=== PATIENT | female | born 1950 | race Caucasian/White ===

== ENCOUNTER 2019-12-12 14:15 | Outpatient (REF) | payer MEDICARE, MEDICAID, SELFPAY ==
--- NOTE | 2019-12-12 14:43 | US_ITS ---
EXAMINATION: US ABDOMEN COMPLETE CLINICAL INFORMATION: Right upper quadrant pain. COMPARISON: Renal ultrasound 09/29/2015. CT abdomen pelvis 05/11/2009 TECHNIQUE: Real-time imaging of the abdominal viscera. Color Doppler exam used. FINDINGS: PANCREAS: Normal. ABDOMINAL AORTA: No aneurysm of aorta. There is mild atherosclerotic irregularity of the wall of the aorta. The proximal mid and distal aorta are visualized. INFERIOR VENA CAVA: Visualized portions are normal. LIVER: Liver is of normal size. The liver contour is normal. The echotexture of the parenchyma of the liver is mildly coarsened.. No focal hepatic lesion. There is no intrahepatic biliary duct dilatation seen. Small area of nonspecific thickening of the hepatic artery wall at the lashay hepatis incidentally noted. GALLBLADDER: Normal. The gallbladder is physiologically distended without evidence of stones, sludge, polyps, wall thickening or pericholecystic fluid. COMMON BILE DUCT: Normal in caliber measuring 0.2 cm in diameter. RIGHT KIDNEY: There is increased echogenicity and cortical thinning of the kidney. There are multiple renal cysts. Largest in the midpole measuring 0.8 cm. Mild fullness of the renal pelvis versus parapelvic cysts. No renal calculus. The kidney measures 9.3 cm in maximum dimension. LEFT KIDNEY: There is increased echogenicity and cortical thinning of the kidney. There are multiple renal cysts. Largest cyst measures 1.3 cm in the upper pole. No renal calculus. The kidney measures 10.2 cm in maximum dimension. SPLEEN: Normal. The spleen measures 6.6 cm in maximum dimension. FREE FLUID: None. IMPRESSION: 1. Liver is of normal size. There is coarse echotexture of the liver raising concern of hepatocellular disease, however this is nonspecific. 2. No gallstone or acute change of gallbladder. There is no bile duct dilatation. 3. Both kidneys show increased echogenicity of the cortex and cortical thinning consistent with medical renal disease.
== END 2019-12-12 14:16 | disposition home or self-care (01) ==
LOC: HO.US 14:15
PROVIDERS: PCP Internal Medicine; Visit Provider Internal Medicine
DX: R10.11 Right upper quadrant pain (principal)
CPT/HCPCS: 76700

== ENCOUNTER 2019-12-24 11:44 | Outpatient (REF) | payer MEDICARE, MEDICAID, SELFPAY ==
--- NOTE | 2019-12-24 11:47 | CT_ITS ---
EXAMINATION: CT ABDOMEN AND PELVIS WITH CONTRAST CLINICAL INFORMATION: Abdominal pain COMPARISON: Previous abdominal ultrasound from 12/12/[address] of the abdomen and pelvis April 2009 TECHNIQUE: Multidetector volumetric images were obtained from the superior aspect of the liver through the pubic symphysis following administration 85 mL ofOmnipaque 350 intravenous contrast. Sagittal and coronal reformatted images were obtained on the technologist's workstation. Oral contrast: Yes This CT examination was performed using dose optimization techniques as appropriate, variously including the following: *Automated exposure control *Adjustment of mA and/or kV according to patient size (this includes techniques or standardized protocols for targeted exams where dose is matched to indication/reason for exam; i.e. extremities or head) *Use of iterative reconstruction technique DLP: 312 mGy-cm FINDINGS: LUNG BASES: There is a atelectasis or some or consolidation seen in the medial segment of the right middle lobe. There is minimal atelectasis or consolidation seen in the inferior segment of the lingula. The lung bases are otherwise clear. LIVER, GALLBLADDER, AND BILIARY TREE: The liver is normal in size, shape, and attenuation. There is a small 4 mm low-attenuation lesion in the right lobe of the liver axial image 30 series 3 that is too small to definitively characterize. The gallbladder is unremarkable. There is no biliary duct dilatation. PANCREAS: Unremarkable. SPLEEN: Unremarkable. ADRENAL GLANDS: Unremarkable. KIDNEYS AND URETERS: There are innumerable small cysts seen in both kidneys suggestive of microcystic kidney disease. The largest cyst measures 1 cm in the lower pole of the left kidney. There is a 3 mm stone in the upper pole of the left kidney. There is question two 1 to 2 mm stones in the upper pole of the right kidney. No renal mass or hydronephrosis is seen. BLADDER: Unremarkable. GASTROINTESTINAL TRACT: There is stool throughout the colon suggestive of constipation. The small and large bowel are otherwise unremarkable. The appendix is unremarkable. The stomach is unremarkable. ABDOMINAL WALL: No significant hernia is appreciated. LYMPH NODES: Normal. VASCULAR: The abdominal aorta is calcified but normal in caliber. There are prominent bilateral ovarian veins questionable for pelvic congestion. PELVIC VISCERA: There are prominent pelvic vessels questionable for pelvic congestion. Uterus and adnexa are otherwise unremarkable. OSSEOUS STRUCTURES: There is degenerative disc disease at L5-S1. CT/CT abdomen pelvis w con IMPRESSION: Innumerable small cysts in both kidneys suggestive of microcystic disease. Small bilateral renal stones. Normal-appearing liver. Stool throughout the colon suggestive of constipation.
[2019-12-24] MEDS: iohexoL 350 MG/ML 100 ML INFUS..BTL 85 ML IV (14:47)
[2019-12-24] MEDS: Barium Sulfate Oral (Vanilla) 450 ML ORAL.SUSP 900 ML PO (14:49)
== END 2019-12-24 11:45 | disposition home or self-care (01) ==
LOC: HO.CT 11:44
PROVIDERS: PCP Internal Medicine; Visit Provider Internal Medicine
DX: R10.9 Unspecified abdominal pain (principal)
CPT/HCPCS: 74177; Q9967

== ENCOUNTER 2019-12-26 14:35 | Outpatient (REF) | payer MEDICARE, MEDICAID, SELFPAY ==
--- NOTE | 2019-12-26 14:44 | XR_ITS ---
EXAMINATION: BILATERAL SHOULDER. CLINICAL INFORMATION: Pain. Dislocation. COMPARISON: None TECHNIQUE: 2 views each shoulder. FINDINGS: RIGHT SHOULDER: There is no visible acute fracture, dislocation or subluxation seen. No bony erosive changes. The soft tissues are normal. LEFT SHOULDER: There is no visible acute fracture, dislocation or subluxation seen. There is a small enthesophyte along the greater tuberosity. The soft tissues are normal. No bony erosive changes seen. XR/XR shoulder RT min 2V IMPRESSION: Unremarkable bilateral shoulder exam.
--- NOTE | 2019-12-26 14:45 | XR_ITS ---
EXAMINATION: BILATERAL SHOULDER. CLINICAL INFORMATION: Pain. Dislocation. COMPARISON: None TECHNIQUE: 2 views each shoulder. FINDINGS: RIGHT SHOULDER: There is no visible acute fracture, dislocation or subluxation seen. No bony erosive changes. The soft tissues are normal. LEFT SHOULDER: There is no visible acute fracture, dislocation or subluxation seen. There is a small enthesophyte along the greater tuberosity. The soft tissues are normal. No bony erosive changes seen. XR/XR shoulder LT min 2V IMPRESSION: Unremarkable bilateral shoulder exam.
== END 2019-12-26 14:36 | disposition home or self-care (01) ==
LOC: HO.XRAY 14:35
PROVIDERS: PCP Internal Medicine; Visit Provider Internal Medicine
DX: M25.512 Pain in left shoulder (principal); M25.511 Pain in right shoulder
CPT/HCPCS: 73030

== ENCOUNTER 2021-05-16 11:13 | Outpatient (REF) | payer MEDICARE, MEDICAID, SELFPAY ==
--- NOTE | ~2021-05-16 | XR_ITS ---
EXAMINATION: XR CHEST CLINICAL INFORMATION: Cough and greenish sputum. COMPARISON: None TECHNIQUE: 2 views of the chest were obtained. FINDINGS: No significant abnormality is noted involving the heart, lungs, mediastinum, bony thorax or soft tissues. XR/XR chest 2V IMPRESSION: Unremarkable chest examination.
== END 2021-05-16 11:14 | disposition home or self-care (01) ==
LOC: HO.XRAY 11:13
PROVIDERS: PCP Internal Medicine; Visit Provider Internal Medicine
DX: R05.9 Cough, unspecified (principal); R09.3 Abnormal sputum
CPT/HCPCS: 71046

== ENCOUNTER 2022-01-03 14:33 | Outpatient (REF) | payer MEDICARE, MEDICAID, SELFPAY ==
--- NOTE | ~2022-01-03 | MM_ITS ---
EXAMINATION: MM SCREENING DIGITAL BREAST TOMOSYNTHESIS, BILATERAL CLINICAL INFORMATION: Screening. Asymptomatic. COMPARISON: Mammography: December 27, 2018 and studies dating back to August 08, 2013 TECHNIQUE: Digital breast tomosynthesis is performed in both the craniocaudal and mediolateral oblique views along with computer-aided detection (CAD). Synthesized 2D images are generated from the tomosynthesis. FINDINGS: There are scattered areas of fibroglandular density (ACR BI-RADS breast composition Category b). There are no significant masses, abnormal calcifications, or other abnormalities. MM/MM tomosynthesis screening BI IMPRESSION: No significant changes from prior exam. ASSESSMENT: BI-RADS 1: Negative RECOMMENDATION: Routine annual mammography screening. This patient's information was entered into a reminder system with a target due date for their next mammogram.
== END 2022-01-03 14:34 | disposition home or self-care (01) ==
LOC: HO.MAMMO 14:33
PROVIDERS: PCP Internal Medicine; Visit Provider Internal Medicine
DX: Z12.31 Encounter for screening mammogram for malignant neoplasm of breast (principal)
CPT/HCPCS: 77063; 77067

== ENCOUNTER 2022-12-06 15:10 | Outpatient (REF) | payer MEDICARE, MEDICAID, SELFPAY ==
--- NOTE | ~2022-12-06 | XR_ITS ---
EXAMINATION: CERVICAL SPINE 3 VIEWS CLINICAL INFORMATION: Pain. COMPARISON: CT cervical spine dated 02/27/2018. TECHNIQUE: Frontal, lateral and odontoid views are obtained. FINDINGS: Vertebral body heights and alignment are normal. At C2-C3, there is mild posterior disc space narrowing. At C3-C4 and C4-C5, there is moderate disc space narrowing. At C5-C6, there is marked disc space narrowing. At C6-C7, there is moderate disc space narrowing. No acute fracture or spondylolisthesis is seen. There is multi-level cervical spondylosis and facet arthropathy. The posterior elements are intact. There is no prevertebral soft tissue swelling. The dens and C7-T1 interface are normal. There is a left carotid atherosclerotic calcification, which can be more fully evaluated with dedicated carotid ultrasound, if clinically indicated. XR/XR lumbar spine 2-3V IMPRESSION: There is multi-level cervical degenerative disc disease, spondylosis and facet arthropathy. Degenerative disc disease is most pronounced at C5-C6, where it is marked. EXAMINATION: XR THORACIC SPINE CLINICAL INFORMATION: Pain. COMPARISON: None available. TECHNIQUE: Frontal and lateral views of the thoracic spine were obtained. FINDINGS: There is bony demineralization. There is a mild cervicothoracic dextroscoliosis. The thoracic disc spaces are well-maintained. No acute fracture or spondylolisthesis is seen. There is multi-level mild thoracic spondylosis. The posterior elements are intact. The paravertebral soft tissues are unremarkable. IMPRESSION: 1. No acute fracture or spondylolisthesis is seen. 2. The thoracic disc spaces are well-maintained. 3. There is multi-level mild thoracic spondylosis. 4. There is a mild cervicothoracic dextroscoliosis. EXAMINATION: XR LUMBOSACRAL SPINE CLINICAL INFORMATION: Pain. COMPARISON: None TECHNIQUE: AP and lateral views of the lumbar spine and lateral view of the lumbosacral junction. FINDINGS: Vertebral body heights are normal. There is a mild thoracolumbar rotatory levoscoliosis. At L5-S1, there is a 4 mm anterolisthesis. The remaining disc spaces are well-maintained. A rudimentary disc space is noted at S1-S2. The posterior elements are intact. There are aortoiliac atherosclerotic calcifications. IMPRESSION: 1. There is mild degenerative disc disease at L5-S1. 2. There is a mild thoracolumbar rotatory levoscoliosis.
== END 2022-12-06 15:11 | disposition home or self-care (01) ==
LOC: HO.HMGCX 15:10
PROVIDERS: PCP Internal Medicine; Visit Provider Internal Medicine
DX: M54.2 Cervicalgia (principal); M54.6 Pain in thoracic spine; M54.50 Low back pain, unspecified
CPT/HCPCS: 72040; 72070; 72100

== ENCOUNTER 2023-01-02 14:27 | Outpatient (REF) | payer MEDICARE, MEDICAID, SELFPAY ==
--- NOTE | ~2023-01-02 | US_ITS ---
EXAMINATION: US EXTRACRANIAL CAROTID DUPLEX, BILATERAL CLINICAL INFORMATION: Occlusion and stenosis bilateral CA COMPARISON: None available. TECHNIQUE: Real-time ultrasound and Doppler techniques (integrating B-mode 2-D vascular images, Doppler spectral analysis and color-flow Doppler imaging) were utilized to interrogate the extracranial carotid arteries, the vertebral arteries and proximal subclavian arteries bilaterally. The degree of stenosis is determined by criteria similar to NASCET. FINDINGS: Right Side: 1. There is mild atherosclerotic plaque seen in the bifurcation/proximal ICA region. 2. The common carotid artery PSV proximally is 88.4 cm/s and distally 62.3 cm/s. 3. The proximal internal carotid artery velocities are 50.5 cm/s systolic and 17.2 cm/s diastolic. 4. The proximal external carotid artery PSV is 53.9 cm/s. 5. The vertebral artery shows antegrade flow. 6. The subclavian artery waveforms are normal. Left Side: 1. There is no atherosclerotic plaque seen in the bifurcation/proximal ICA region. 2. The common carotid artery PSV proximally is 62.8 cm/s and distally 58.1 cm/s. 3. The proximal internal carotid artery velocities are 50.8 cm/s systolic and 20.4 cm/s diastolic. 4. The proximal external carotid artery PSV is 81.1 cm/s. 5. The vertebral artery shows antegrade flow. 6. The subclavian artery waveforms are normal. US/US carotid duplex BI IMPRESSION: 1. RIGHT: Minimal, non-hemodynamically significant stenosis of the proximal right internal carotid artery corresponding to a 0-49% stenosis by velocity criteria. 2. LEFT: Normal left internal carotid artery without atherosclerotic plaque or hemodynamically significant stenosis.
== END 2023-01-02 14:28 | disposition home or self-care (01) ==
LOC: HO.US 14:27
PROVIDERS: PCP Internal Medicine; Visit Provider Internal Medicine
DX: I65.23 Occlusion and stenosis of bilateral carotid arteries (principal)
CPT/HCPCS: 93880

== ENCOUNTER 2023-02-05 18:36 | Outpatient (REF) | payer MEDICARE, MEDICAID, SELFPAY ==
--- NOTE | ~2023-02-05 | MR_ITS ---
EXAMINATION: MR CERVICAL SPINE WITHOUT CONTRAST CLINICAL INFORMATION: Pain, rule out disc pathology. Self-reported bilateral arm weakness, arm numbness and arm pain. COMPARISON: Cervical spine radiographs 12/06/2022, cervical spine CT 02/27/2018 TECHNIQUE: MRI of the cervical spine was obtained using routine sequences without contrast. FINDINGS: Straightening of the cervical lordosis is noted and may be secondary to positioning during the examination. 2 mm degenerative type anterolisthesis of C4 and C5 is visualized. Visualized posterior fossa structures and craniocervical junction are normal in appearance. Incidental note is made of a dominant left vertebral artery. C2-C3: No central or foraminal stenoses. C3-C4: Marked right foraminal stenosis. Moderate-marked left foraminal stenosis. Mild central stenosis. Findings arise secondary to a posterior broad-based disc bulge with prominent bilateral uncovertebral joint incorporation with findings most pronounced on the rightward 75% right foraminal stenosis is present with probable right C4 nerve root impingement. C4-C5: Marked left foraminal stenosis. Moderate central stenosis. Findings arise in the setting of a moderate posterior broad-based disc bulge with focal prominence of the left uncovertebral joint component in association with adjacent ligamentum flavum hypertrophy resulting in at least 75% left foraminal narrowing and probable left C5 nerve root impingement. C5-C6: Marked right foraminal stenosis. Marked left foraminal stenosis. Moderate central stenosis. Findings are present in the setting of a moderate posterior broad-based disc-osteophyte complex with focally prominent bilateral uncovertebral joint incorporation. The posterior broad-based disc-osteophyte complex demonstrates right parasagittal eccentricity and is associated with effacement of the ventral thecal sac CSF space, AP deformation of the adjacent spinal cord and partial preservation of the dorsal thecal sac CSF space without associated adjacent spinal cord signal abnormality. C6-C7: Mild right foraminal stenosis. Mild central stenosis. Findings are present in association with a mild right uncovertebral joint disc-osteophyte complex. C7-T1: No central or foraminal stenoses. 3 mm left intraforaminal Tarlov cyst. MR/MR cervical spine wo con IMPRESSION: 1. Advanced multilevel chronic spondylosis of the cervical spine including significant findings as detailed below 2. C3-C4 marked right foraminal stenosis with right C4 nerve root impingement. 3. C4-C5 marked left foraminal stenosis with left C5 nerve root impingement. 4. C5-C6 marked bilateral foraminal stenoses with bilateral C6 nerve root impingements.
--- NOTE | ~2023-02-05 | MR_ITS ---
EXAMINATION: MR LUMBAR SPINE WITHOUT CONTRAST CLINICAL INFORMATION: Pain. Rule out disc pathology. Self-reported bilateral leg weakness, numbness and pain. COMPARISON: Lumbar spine radiographs 12/06/2022, CT abdomen and pelvis 12/24/2019. TECHNIQUE: MRI of the lumbar spine was obtained using routine sequences without contrast. FINDINGS: Five lumbar-type vertebral bodies are identified. Mild gradual convex leftward curvature of the lumbar spine is visualized and may be secondary to positioning. No vertebral body compression deformities or suspicious marrow abnormalities identified. Mild fatty type II chronic discogenic marrow signal changes are present adjacent to the L5-S1 intervertebral disc space. Partial visualization is made of 2 Tarlov cysts within the central canal at the level of S1-S2, the largest measuring 9 mm in diameter. The kidneys are partially included in the imaged [id number] and demonstrate multiple predominantly subcentimeter cysts in a cortical distribution. The visualized kidneys are grossly normal in size. Mild right pelviectasis is noted along with mild prominence of the proximal right ureter to a diameter of 5 mm. The visualized right renal pelvis and proximal right ureter are similar in configuration to findings noted contemporaneously on the 12/24/2019 CT of the abdomen and pelvis. The conus medullaris terminates at the level of L1. The conus medullaris and cauda equina are normal in appearance. T12-L1: No central or foraminal stenoses. L1-L2: Minimal posterior broad-based disc bulge. No significant central or foraminal stenoses. L2-L3: Mild central stenosis secondary to a mild posterior broad-based disc bulge minimally effacing the ventral thecal sac CSF space. L3-L4: Mild central stenosis and mild bilateral foraminal stenoses. Annular disc fissure. A mild posterior broad-based disc bulge with bilateral intraforaminal extension is present. T2 hyperintensity is present in the midline posterior aspect of the annulus of the intervertebral disc and may represent an annular fissure. No associated nerve root impingement noted. Mild bilateral ligamentum flavum hypertrophy. L4-L5: Mild central stenosis. Mild right foraminal stenosis. Findings arise secondary to a mild posterior broad-based disc bulge with right parasagittal and intraforaminal eccentricity with less than 50% right foraminal narrowing and resulting in mild effacement of the ventral thecal sac CSF space without associated nerve root impingement. Furthermore, mild right facet hypertrophic changes and minimal left facet hypertrophic changes noted. L5-S1: The intervertebral disc exhibits 75% overall loss of craniocaudal height. Mild central stenosis and mild left foraminal stenosis are present secondary to a mild posterior broad-based disc-osteophyte complex without associated direct nerve root impingement. MR/MR lumbar spine wo con IMPRESSION: 1. Multilevel chronic spondylosis of the lumbar spine without associated direct nerve root impingement or marked central or foraminal stenoses. Mild central and foraminal stenoses are noted at L2-L3, L3-L4, L4-L5, and L5-S1 as detailed above. A possible annular disc fissure is noted at L3-L4. 2. Glomerulocystic microcystic renal disease. Innumerable subcentimeter predominantly cortical-based renal cysts, similar to findings present on CT of the abdomen and pelvis 12/24/2019. Mild right pelviectasis and mild proximal right ureterectasis are present on the current exam and are similar in degree to findings present on the comparison study of 12/24/2019.
== END 2023-02-05 18:37 | disposition home or self-care (01) ==
LOC: HO.MRI 18:36
PROVIDERS: PCP Internal Medicine; Visit Provider Internal Medicine
DX: M54.2 Cervicalgia (principal); M43.16 Spondylolisthesis, lumbar region
CPT/HCPCS: 72141; 72148

== ENCOUNTER 2024-08-22 07:49 | Outpatient (AMB) | payer MEDICARE, SELFPAY ==
--- OUTSIDE RECORDS SUMMARY | 2024-08-22 07:52 | XMS_ITS | Encounter Summary ---
Author Organization [facility] Address [address] [place] [address] Phone Care Team Providers Care Respiratory Therapy Assistant Name Role Phone Amrit Lerma MD Primary Care Provider [phone] Encounter Details Date Type Department Care Team (Late Contact Info) Description 10/02/2023 Documentation Only [facility] [address] [place] [address] KevCece welch [address] [place] [id number] Social History Tobacco Use Types Packs/Day Years Used Date Smoking Tobacco: Never Assessed Alcohol Use Standard Drinks/Week Comments No 0 (1 standard drink = 0.6 oz pur e alcohol) Comments Unknown Sex and Gender Information Value Date Recorded Sex Assigned at Not on file Legal Sex Female 4:31 PM EST Gender Identity Not on file Sexual Orientation Not on file documented as of this encounter Plan of Treatment Upcoming Encounters Date Type Department Care Team (Late st Contact Info) Description 01/29/2025 1:30 PM EST Office Visit [facility] [address] [place] [address] Neda Francisco MD [address] [place] [address] [place] [address] documented as of this encounter Visit Diagnoses Not on filedocumented in this encounter Care Teams Respiratory Therapy Assistant Relationship Specialty Start Date End Date Amrit Lerma MD [address] [place] [address] PCP - General 12/31/18 documented as of this encounter
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
[2024-08-22 08:09] VITALS: BP 130/82; PULSE 96; TEMP 36.2; O2SAT 95; BMI 21.5
== END 2024-08-22 09:02 | disposition home or self-care (01) ==
LOC: HO.HMCH 07:49
DX: Q61.3 Polycystic kidney, unspecified (principal); F31.31 Bipolar disorder, current episode depressed, mild; K58.9 Irritable bowel syndrome, unspecified; F17.200 Nicotine dependence, unspecified, uncomplicated; N32.81 Overactive bladder; M48.02 Spinal stenosis, cervical region; M47.812 Spondylosis without myelopathy or radiculopathy, cervical region; M47.816 Spondylosis without myelopathy or radiculopathy, lumbar region; M81.0 Age-related osteoporosis without current pathological fracture; Z13.220 Encounter for screening for lipoid disorders; Z53.20 Procedure and treatment not carried out because of patient's decision for unspecified reasons; Z00.00 Encounter for general adult medical examination without abnormal findings

== ENCOUNTER 2024-08-22 07:49 | Outpatient (REF) | payer MEDICARE, SELFPAY ==
[2024-08-22 09:20] LABS: MANUAL DIFF FLAG NO
[2024-08-22 09:45] LABS: Basophils Absolute Auto 0.1 X10*3/uL (0.0-0.2); Basophils Percent Auto 0.9 % (0-2); Eosinophils Absolute Auto 0.1 X10*3/uL (0.0-0.4); Eosinophils Percent Auto 1.4 % (0-4); Hematocrit 41.9 % (37.0-47.0); Hemoglobin 14.4 g/dl (12.0-16.0); Imm Gran Abs Auto 0.01 X10*3/uL (0.00-0.03); Imm Gran Pct Auto 0.1 % (0.0-0.4); Lymphocytes Absolute Auto 1.3 X10*3/uL (1.2-4.9); Lymphocytes Percent Auto 17.2 % (20-40); Mean Corpuscular HGB Conc 34.4 g/dl (31.0-35.0); Mean Corpuscular Hemoglobin 32.3 pg (27.0-33.0); Mean Corpuscular Volume 93.9 fL (80.0-98.0); Mean Platelet Volume 10.4 fL (9.4-12.3); Monocytes Percent Auto 13.3 % (2-11); Neutrophils Absolute Auto 5.1 x10*3/uL (2.0-8.3); Neutrophils Percent Auto 67.1 % (45-73); Platelet Count 300 X10*3/uL (160-400); Red Blood Count 4.46 X10*6/uL (4.20-5.50); Red Cell Distribution Width 12.4 % (11.0-16.0); White Blood Count 7.6 X10*3/uL (4.8-10.8)
[2024-08-22 10:59] LABS: Alanine Aminotransferase 45 U/L (0-31); Albumin Level 4.6 g/dL (3.5-5.0); Alkaline Phosphatase 75 U/L (39-117); Anion Gap 17 (12-20); Aspartate Amino Transferase 57 U/L (5-31); Bilirubin Total 0.4 mg/dL (0.0-1.0); Blood Urea Nitrogen 30 mg/dL (9-16); Calcium 9.2 mg/dL (8.4-10.2); Carbon Dioxide 24 mmol/L (22-29); Chloride 105 mmol/L (96-108); Cholesterol 179 mg/dL (<200); Estimated Glomerular Filt Rate 34; Glucose Random 104 mg/dL (60-115); HDL Cholesterol 73 mg/dL (>40); LDL Cholesterol Calculated 87 mg/dL (<100); Potassium 4.3 mmol/L (3.3-5.1); Sodium 142 mmol/L (135-145); Triglycerides 97 mg/dL (<150)
[2024-08-22 11:05] LABS: Free T4 (Free Thyroxine) 1.03 ng/dL (0.71-1.85); TSH reflex Free T4 2.58 uIU/mL (0.32-4.0); Vitamin D 25-OH Total 62.4 ng/mL (>30)
[2024-08-22 11:24] LABS: Vitamin B12 937 pg/mL (200-900)
== END 2024-08-22 07:50 | disposition home or self-care (01) ==
LOC: HO.LAB 07:49
DX: Z00.00 Encounter for general adult medical examination without abnormal findings (principal); Q61.3 Polycystic kidney, unspecified; M81.0 Age-related osteoporosis without current pathological fracture; Z13.220 Encounter for screening for lipoid disorders; Z13.21 Encounter for screening for nutritional disorder
CPT/HCPCS: 36415; 80053; 80061; 82306; 82607; 82746; 84439; 84443; 85025; 96127; 99202

== ENCOUNTER 2024-11-24 13:34 | Outpatient (AMB) | payer MEDICARE, SELFPAY ==
--- NOTE | 2024-11-24 13:40 | AM.OFFVISMDC ---
Intake Vital Signs 11/24/24 13:42 Height 5 ft 3.39 in Weight 124 lb BMI 21.7 BP 120/76 Blood Pressure Location Lt brachial Position Sitting Pulse 84 Pulse Source Pulse Oximeter Temp 97.1 F Temp Source Temporal Artery Scan Pulse Oximetry (%) 93 Oxygen Delivery Method Room Air Intake Visit Reasons: AWV G0438 Intake Note: Patient is here for an Annual Wellness Visit. Permanent Mold Supervisor Required: No Beam Department Supervisor: Beam Department Supervisor offered & declined Accompanied by: Self / Same As Patient Allergies No Known Allergies (No Known Allergies*) Allergy (Verified 11/24/24 13:49) Medication List - Last Reconciled 11/24/24 by Yandy Faust PA-C ascorbate calcium (vitamin C) 500 mg PO DAILY betamethasone dipropionate 0.05% topical clonazepam 2 mg PO BEDTIME cyclobenzaprine 10 mg PO TID PRN dicyclomine 10 mg PO BID PRN divalproex ER 500 mg PO DAILY iron heme polypeptide (Proferrin ES) 12 mg PO DAILY lactulose 30 mL PO BID minoxidil-finasteride 5-0.1 % mL topical mirabegron ER 25 mg PO DAILY [id number]-[id number]-sxpxph 1 tab PO DAILY tramadol 50 mg PO TID venlafaxine ER 37.5 mg PO QAM vibegron (Gemtesa) 75 mg PO DAILY HPI AWV G0438 HPI Details 73 year old female with past medical history of polycytic kidney disease, bipolar disorder, IBS, tobacco use disorder, overactive bladder, osteoporosis last seen 07/2024 coming in for AWV. Presenting with an annual wellness examination. Alopecia Managed with topical minoxidil; oral minoxidil was contraindicated due to kidney disease. Elevated liver enzymes Attributed to Depakote; requires re-evaluation. No acute concerns today. mammogram: 2021 declined colonoscopy: declined DEXA: declined vaccines: [facility] Surgical History History of local excision of skin lesion Family History Other Mental health disorder Social History Housing: Apartment Alcohol intake: current Alcohol intake frequency: holidays/special occasions only Patient Tobacco Use Status: Current everyday Tobacco user Tobacco use type: Cigarette Cigarette Packs Per Day: 1 Cigarettes Per Day: 19 e-Cigarette/Vaping Use: Never Used Second Hand Smoke Exposure: Yes service: No Current occupational status: disabled Cognitive needs: No Hearing needs: No Vision needs: Yes (Glasses) Questionnaire Medicare Wellness Checkup [age] What gender do you identify with?: female During the past 4 weeks, how much have you been bothered by emotional problems such as feeling anxious, depressed, irritable, sad or downhearted, and blue?: slightly During the past 4 weeks, has your physical & emotional health limited your social activities with family, friends, neighbors, or groups?: quite a bit During the past 4 weeks, how much bodily pain have you generally had?: severe pain During the past 4 weeks, was someone available to help you if you needed & wanted help?: no, not at all During the past 4 weeks, what was the hardest physical activity you could do for at least 2 minutes?: light Can you get to places out of walking distance without help? (For eg., can you travel alone on buses, taxis or drive your car?): Yes Can you go shopping for groceries or clothes without someone's help?: Yes Can you prepare your own meals?: Yes Can you do your housework without help?: Yes Because of any health problems, do you need the help of another person with your personal care needs such as eating, bathing, dressing or getting around the house?: No Can you handle your own money without help?: Yes During the past 4 weeks, how would you rate your health in general?: good During the past 4 weeks how have things been going for you?: good & bad parts about equal Are you having difficulties driving your car?: no Do you always fasten your seat belt when you are in a car?: yes, usually During past 4 weeks, have you been bothered by the following: never: Falling or dizzy when standing up, Sexual problems?, Trouble eating well?, Teeth or denture problems? and Problems using the telephone? and always: Tiredness or fatigue? Have you fallen 2 or more times in the past year?: No Are you afraid of falling?: No Are you a smoker?: yes, but I'm not ready to quit During the past 4 weeks, how many drinks of wine, beer, or other alcoholic beverages did you have?: no alcohol at all Do you exercise for about 20 minutes 3 or more times a week?: no, I usually do not exercise this much Have you been given information to help with the following?: yes: Keeping track of your medications? and no: Hazards in your house that might hurt you? How often do you have trouble taking medicines the way you have been told to take them?: I always take medicine as prescribed How confident are you that you can control & manage most of your health problems?: very confident What is your race?: White Mini Mental State Exam (MMSE) Orientation What is the (year) (season) (date) (day) (month)?: year, season, date, day and month Where are we (state) (county) (town or city) (hospital) (floor)?: state, county, town or city, hospital/clinic and floor Score Score: 10 PHQ-9 Over the last 2 weeks, how often have you been bothered by any of the following problems? 1. Little interest or pleasure in doing things: several days 2. Feeling down, depressed, or hopeless: several days 3. Trouble falling or staying asleep, or sleeping too much: nearly every day 4. Feeling tired or having little energy: several days and nearly every day 5. Poor appetite or overeating: not at all 6. Feeling bad about yourself - or that you are a failure or have let yourself or your family down: not at all and several days 7. Trouble concentrating on things, such as reading the newspaper or watching television: not at all 8. Moving or speaking so slowly that other people could have noticed. Or the opposite - being so fidgety or restless that you have been moving around a lot more than usual: not at all 9. Thoughts that you would be better off or of hurting yourself in some way: not at all and several days Total score: 6 Depression Screening Interpretation: Positive Depression Screening Follow-up: Existing condition and In treatment Depression Screening Done: Yes Source: Developed by Drs. Ray Salazar, Denise Farooq, Josh Keen and colleagues, with an educational eloise from [employer]. Thrive Questionnaire Date Thrive assessed: 08/22/24 I am a: Patient What is your living situation today?: I have a steady place to live Within the past 12 months, did the food you bought not last and you didn't have the money to get more?: Never true Within the past 12 months, did you worry whether your food would run out before you got money to buy more?: Never true Do you have trouble paying for medicines?: No Do you have trouble getting transportation to medical appointments?: No Do you have trouble paying your heating and electricity bill?: No Do you have trouble taking care of your child, family member or friend?: No Do you have trouble with day-to-day activities such as bathing, preparing meals, shopping, managing finances, etc.?: Yes Are you currently unemployed and looking for a job?: No Are you interested in more education?: No Please select the resources that you would like help with: None Currently or been in a relationship where the following occur: Controlled Emotionally THRIVE Score: 1 OPAL-7 AMB Questionnaire OPAL-7 Date OPAL - 7 assessed: 08/22/24 Feeling nervous, anxious, or on edge: 1 = Several days Not being able to stop or control worryin = Several days Worrying too much about different things: 1 = Several days Trouble relaxin = Several days Being so restless that it is hard to sit still: 0 = Not at all Becoming easily annoyed or irritable: 1 = Several days Feeling afraid as if something awful might happen: 0 = Not at all Total OPAL-7 score (0-4 normal; 5-9 mild; 10-14 moderate; 15-21 severe): 5 Source: Developed by Drs. Ray Salazar, Denise Farooq, Josh Keen and colleagues, with an educational eloise from [employer]. Review of Systems Const Denies body aches, Denies fatigue, Denies fever(s), Denies frequent falls, Denies headache(s) and Denies weakness Eyes Reports no additional complaints and Denies change in vision ENT Denies dysphagia, Denies dizziness, Denies facial pain, Denies headache(s), Denies nasal congestion and Denies odynophagia Card Denies chest pain, Denies syncope, Denies irregular heart rhythm, Denies leg edema, Denies lightheadedness and Denies dyspnea Resp Denies cough and Denies dyspnea GI Denies abdominal pain, Denies constipation, Denies dysphagia, Denies dyspepsia, Denies diarrhea, Denies nausea, Denies odynophagia and Denies vomiting Denies urinary frequency, Denies dysuria, Denies urinary hesitancy and Denies urinary urgency Musc Reports as per HPI, Reports abnormal gait, Reports back pain and Denies myalgias Skin/Breast Reports system reviewed and no additional complaints, except as documented Neuro Reports abnormal gait, Denies dizziness, Denies syncope, Denies frequent falls, Denies headache(s) and Denies weakness Psych Reports no additional complaints Endo Denies fatigue Physical Exam Vital Signs: Last Vital Signs Temp 97.1 F 11/24/24 13:42 Pulse 84 11/24/24 13:42 BP 120/76 11/24/24 13:42 Pulse Ox 93 11/24/24 13:42 Oxygen Delivery Method Room Air 11/24/24 13:42 BMI result Body Mass Index 21.7 Const General: cooperative, healthy appearing, comfortable and no acute distress Orientation/consciousness: patient oriented x3 HEENT Head: Yes normocephalic Ears: hearing grossly normal bilaterally, external ears normal, TM's normal bilaterally and EAC's normal General nose exam: Normal external nose present Face and sinus: Yes normal facial exam and Yes sinuses nontender Mouth: Normal oral and palatal mucosa present and tongue normal Throat: Yes posterior oropharynx normal Eyes General: appearance normal, both eyes and all related structures Conjunctivae: conjunctivae normal Pupils: Equal, round and reactive pupils present EOM: EOMs intact bilaterally and No Nystagmus present Neck Neck: Yes normal visual inspection, Yes full ROM and Yes no lymphadenopathy Chest Chest palpation & inspection: normal inspection of the chest Resp Effort & Inspection: normal respiratory effort Auscultation: clear to auscultation bilaterally, no crackles, no rales, no rhonchi, no wheezes and breath sounds present Cardio Rate: regular rate Rhythm: regular rhythm Peripheral pulses: radial pulses present and dorsalis pedis present GI Inspection: Yes normal to inspection and No Abdominal wall edema Palpation (GI): Soft to palpation, not firm and nontender Auscultation: normal bowel sounds Rectal Exam - Female: deferred General: Yes no CVA tenderness Back/Spine/Pelvis Back: no CVA tenderness Skin General skin exam: no rashes or lesions noted Neuro General: patient oriented x3 Cranial nerves: Yes Equal, round and reactive pupils present, Yes Midline tongue present, Yes Ability to bilaterally elevate shoulders present and No Nystagmus present Gait exam (Neuro): Normal gait present Extrem General: Yes normal to inspection, Yes full ROM, No no pedal edema and No edema Psych Speech and movement: Normal speech and movement present Affect: normal affect Insight: Good insight present (Psych) Judgement: Good judgement present (Psych) Assessment & Plan Assessment & Plan (1) Encounter for annual wellness visit (AWV) in Medicare patient: Code(s): Z00.00 - Encounter for general adult medical examination without abnormal findings Plan: [place] of care was reviewed with patient patient was provided with a written screening schedule. Healthcare proxy/ MOLST forms previously completed an and has been scanned to her chart. Healthy diet and regular exercise is encouraged. (2) Polycystic kidney disease: Comment: [facility] yearly Code(s): Q61.3 - Polycystic kidney, unspecified Plan: Patient is currently following with kidney [facility] and [facility] for annual visits. Continue to avoid kidney irritants such as NSAIDs and stay well hydrated. (3) Bipolar disorder: Comment: Counselor [facility] monthly Jonnathan Barcenas for Rx Code(s): F31.9 - Bipolar disorder, unspecified Qualifiers: Active/Remission status: currently active Current bipolar episode type: depressed Current episode severity: mild Qualified Code(s): F31.31 - Bipolar disorder, current episode depressed, mild Plan: Bipolar disorder managed by counselor and prescription management through Psychiatry. She feels well managed on her current medication. (4) IBS (irritable bowel syndrome): Code(s): K58.9 - Irritable bowel syndrome, unspecified Plan: Patient having a history of IBS and has a managed through dietary modification. (5) Tobacco use disorder: Comment: Has tried NRT in the past Code(s): F17.200 - Nicotine dependence, unspecified, uncomplicated Plan: Smoking cigarettes and the use of tobacco can be harmful. We discussed the importance of stopping and options to aid in smoking cessation. Declining lung cancer screening program. Declining nicotine replacement therapy for medical management for tobacco cessation. (6) Overactive bladder: Comment: [facility] Code(s): N32.81 - Overactive bladder Plan: Currently following with [facility] on Gemtesa and mirabegron (7) Spinal stenosis in cervical region: Comment: w/ nerve root impingement Code(s): M48.02 - Spinal stenosis, cervical region Plan: Patient having arthritis and spinal stenosis in the cervical region with nerve root impingement. She currently uses cyclobenzaprine and tramadol as needed for pain. She use the tramadol 2-3 times per month only as needed for severe pain. I did discuss with her if she continues to use the tramadol in this manner I will continue the prescription however if it becomes more consistent use I will recommend pain management for further evaluation and treatment. (8) Cervical spine arthritis: Code(s): M47.812 - Spondylosis without myelopathy or radiculopathy, cervical region Plan: See above (9) Osteoporosis: Comment: declining bone density Code(s): M81.0 - Age-related osteoporosis without current pathological fracture Plan: Declining bone density screening. Recommend vitamin-D supplementation. Must be careful with dietary calcium due to kidney disease. (10) Mammogram declined: Code(s): Z53.20 - Procedure and treatment not carried out because of patient's decision for unspecified reasons Plan: Declining mammogram today. (11) Colon cancer screening declined: Code(s): Z53.20 - Procedure and treatment not carried out because of patient's decision for unspecified reasons Plan: Declining colon cancer screening (12) Elevated serum creatinine: Code(s): R79.89 - Other specified abnormal findings of blood chemistry Plan: Reminded about repeat blood work and advised to stay well hydrated. Plan This note was constructed using voice recognition software. While every effort has been made to ensure accuracy and employee communications coordinator, still areas may have been included sometimes these areas may affect the content or meeting of the given symptoms. Total time spent caring for the patient today was 30 minutes. This includes time spent before the visit reviewing the chart, time spent during the visit, and time spent after the visit and documentation. Patient was informed and verbally consented to the use of an ambient scribe for clinic note documentation during this visit. Orders: Referrals Pain Management Referral M47.812 - Spondylosis without myelopathy or radiculopathy, cervical region, M47.816 - Spondylosis without myelopathy or radiculopathy, lumbar region, M48.02 - Spinal stenosis, cervical region Quality Reporting (2019) Depression/Bipolar (159/160/161/177) PHQ-9: Total score: 6 Coding Level of Care Code Medicare First (G0438) Diagnoses Encounter for annual wellness visit (AWV) in Medicare patient Z00.00 Polycystic kidney disease Q61.3 Bipolar affective disorder, currently depressed, mild F31.31 Active/Remission status: currently active Current bipolar episode type: depressed Current episode severity: mild IBS (irritable bowel syndrome) K58.9 Tobacco use disorder F17.200 Overactive bladder N32.81 Spinal stenosis in cervical region M48.02 Cervical spine arthritis M47.812 Osteoporosis M81.0 Mammogram declined Z53.20 Colon cancer screening declined Z53.20 Elevated serum creatinine R79.89 CPT Codes Advance Care Planning - Advance Care Planning discussion: On file, no changes ([id number]) Advance Care Planning - Time spent: 1-15 minutes, on File ([id number]) Advance Care Planning Advance Care Planning discussion: On file, no changes Date of discussion: 11/24/24 Who was present: myself, patient Forms completed: Health Care Proxy and MOLST Time spent: 1-15 minutes, on File Actual minutes spent: 2
[2024-11-24 13:42] VITALS: BP 120/76; PULSE 84; TEMP 36.2; O2SAT 93; BMI 21.7
--- OUTSIDE RECORDS SUMMARY | 2024-11-24 15:06 | XMS_ITS | Patient Health Record ---
Author Organization [facility] Address [address] [place] [address] Care Team Providers Care Devops Consultant Name Role Phone Maria Guadalupe (RETIRED) Amrit MARQUES Primary Care Provider Unavailable Ray Murillo Unavailable [phone] Reason For Referral No Information Medications Medication SIG (Take, Route, Frequency, Duration) Notes Start Date End Date Status Proferrin ES 12.5 1 tablet Orally Once a day Active Divalproex Sodium ER 500 MG take 1 table t by mouth once daily Oral for 90 Active Alendronate Sodium 35 MG 1 tablet Orally once a week Active Dicyclomine HCl 10 MG Oral for 30 Active Venlafaxine HCl ER 37.5 MG Oral for 30 Active clonazePAM 2 MG (Schedule IV Drug) O ral for 30 Active Centrum Silver - 1 tablet Orally once a day Active Social History Tobacco Use: Social History Observation Description Date Details (start date - stop date) Current Smoker NA - NA Tobacco Use/Smoking Question Answer Notes Patient is a current smoker How often do you smoke cigarettes? every day How many cigarettes a day do you smoke? 6-10 Alcohol Screen Question Answer Notes Did you have a drink containing alcohol in the p ast year? No Points 0 Interpretation Negative Section Notes: Smoker 1/2 ppd; no sig alcoh ol Problems Problem Type SNOMED Code ICD Code Onset Dates Problem Status W/U Status Risk Notes Problem 416683563 Encounter for screening for malignant neoplasm of colon (Z12.11) Active confirmed Problem [id number] Heme + stool (R19.5) Active confirmed Problem [id number] Constipation, unspecified constipation type (K59.00) Active confirmed Plan Of Treatment Pending Test Test Name Order Date GI BIOPSY 11/30/2017 Future Test Test Name Order Date COLONOSCOPY 11/08/2017 Insurance Providers Payer Name Payer Address Payer Phone Subscriber Number Group Number Insured Name Patient Relationship to Insured Coverage Start Date Coverage End Date MEDICARE OF [place] [address] [place] [id number] HAN GARCIA Self - patient is the insured MEDICAID OF [facility] [address] [place] [address] [id number] HAN GARCIA Self - patient is the insured Medical (General) History Medical History History ICD Code Denies [place],DM,CVA,Lung disease,renal dise ase Negative colonoscopy in 2006 EGD in 2006--small hiatal hernia--normal duodenal biopsies Constipation Bipolar II with depression Osteoporosis UGI bleed in 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 pylori Surgical History Surgery Date(Month/Year) Precancerous lesion on cervix /removed v ia a LEEP
== END 2024-11-24 14:35 | disposition home or self-care (01) ==
LOC: HO.HMCH 13:35
DX: Z00.00 Encounter for general adult medical examination without abnormal findings (principal); Q61.3 Polycystic kidney, unspecified; F31.31 Bipolar disorder, current episode depressed, mild; K58.9 Irritable bowel syndrome, unspecified; F17.200 Nicotine dependence, unspecified, uncomplicated; N32.81 Overactive bladder; M48.02 Spinal stenosis, cervical region; M47.812 Spondylosis without myelopathy or radiculopathy, cervical region; M81.0 Age-related osteoporosis without current pathological fracture; Z53.20 Procedure and treatment not carried out because of patient's decision for unspecified reasons; R79.89 Other specified abnormal findings of blood chemistry

== ENCOUNTER 2024-12-23 13:03 | Outpatient (AMB) | payer MEDICARE, SELFPAY ==
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
[2024-12-23 13:11] VITALS: BP 187/84; PULSE 87; O2SAT 98; BMI 21.4
[2024-12-23 13:12] VITALS: BP 145/66
--- OUTSIDE RECORDS SUMMARY | 2024-12-23 16:37 | XMS_ITS | Encounter Summary ---
Author Organization [facility] Address [address] [place] [address] Phone Care Team Providers Care Vice President Residential Solar Sales Name Role Phone Amrit Lerma MD Primary Care Provider [phone] Encounter Details Date Type Department Care Team (Late Contact Info) Description 10/02/2023 Documentation Only [facility] [address] [place] [address] KevCece welch [address] [place] [phone] Social History Tobacco Use Types Packs/Day [...] Visit [facility] [address] [place] [address] Neda Francisco MD [address] [place] [place] [address] [place] [address] documented as of this encounter Visit Diagnoses Not on filedocumented in this encounter Care Teams Vice President Residential Solar Sales Relationship Specialty Start Date End Date Amrit Lerma MD [address] [place] [address] PCP - General 12/31/18 documented as of this encounter
--- OUTSIDE RECORDS SUMMARY | 2024-12-23 16:37 | XMS_ITS | Encounter Summary ---
Author Organization [facility] Address [address] [place] [address] Phone Care Team Providers Care Meter Maker Name Role Phone Amrit Lerma MD Primary Care Provider [phone] Encounter Details Date Type Department Care Team (Late Contact Info) Description 10/02/2023 Documentation Only [facility] [address] [place] [address] Kev[employer]ece welch [address] [place] [phone] Social History Tobacco Use Types Packs/Day [...] Visit [facility] [address] [place] [address] Neda Francisco MD [address] [place] [address] [place] [address] documented as of this encounter Visit Diagnoses Not on filedocumented in this encounter Care Teams Meter Maker Relationship Specialty Start Date End Date Amrit Lerma MD [address] [place] [address] PCP - General 12/31/18 documented as of this encounter
--- OUTSIDE RECORDS SUMMARY | 2024-12-23 16:37 | XMS_ITS | Encounter Summary ---
Author Organization [facility] Address [address] [place] [address] Phone Care Team Providers Care Tractor Mechanic Helper Name Role Phone Amrit Lerma MD Primary Care Provider [phone] Encounter Details Date Type Department Care Team (Late Contact Info) Description 01/09/2024 Documentation Only [facility] [address] [place] [address] KevCece welch [address] [place] [phone] Social History Tobacco Use Types Packs/Day [...] Visit [facility] [address] [place] [address] Neda Francisco MD [address] [place] [address] [place] [address] documented as of this encounter Visit Diagnoses Not on filedocumented in this encounter Care Teams Tractor Mechanic Helper Relationship Specialty Start Date End Date Amrit Lerma MD [address] [place] [address] PCP - General 12/31/18 documented as of this encounter
--- OUTSIDE RECORDS SUMMARY | 2024-12-23 16:37 | XMS_ITS | Encounter Summary ---
Author Organization [facility] Address [address] [place] [address] Phone Care Team Providers Care Faculty Instructor Name Role Phone Amrit Lerma MD Primary Care Provider [phone] Encounter Details Date Type Department Care Team (Late Contact Info) Description 10/02/2023 Documentation Only [facility] [address] [place] [address] KevCece welch [address] [place] [phone] Social History Tobacco Use Types Packs/Day [...] Visit [facility] [address] [place] [address] Neda Francisco MD [address] [place] [address] [place] [address] documented as of this encounter Visit Diagnoses Not on filedocumented in this encounter Care Teams Faculty Instructor Relationship Specialty Start Date End Date Amrit Lerma MD [address] [place] [address] PCP - General 12/31/18 documented as of this encounter
--- OUTSIDE RECORDS SUMMARY | 2024-12-23 16:37 | XMS_ITS | Encounter Summary ---
Author Organization [facility] [place], Address [address] [place] [address] Phone Care Team Providers Care Maintenance Mechanic Telephone Name Role Phone Amrit Lerma MD Primary Care Provider Encounter Details Date Type Department Care Team (Late Contact Info) Description 12/04/2023 Documentation Only [facility] [address] [place] [address] [place] [address] [place] [phone] Social History Tobacco Use Types Packs/Day [...] Encounters Date Type Department Care Team (Late Contact Info) Description 01/29/2025 1:30 PM EST Office Visit [facility] [address] [place] [address] Neda Francisco MD [address] [place] [address] [place] [address] documented as of this encounter Visit Diagnoses Not on filedocumented in this encounter Care Teams Maintenance Mechanic Telephone Relationship Specialty Start Date End Date Amrit Lerma MD [address] [place] [address] PCP - General 12/31/18 documented as of this encounter
--- OUTSIDE RECORDS SUMMARY | 2024-12-23 16:37 | XMS_ITS | Encounter Summary ---
Author Organization [facility] Address [address] [place] [address] Phone Care Team Providers Care Respiratory Therapy Director Name Role Phone Amrit Lerma MD Primary Care Provider [phone] Encounter Details Date Type Department Care Team (Late Contact Info) Description 10/02/2023 Documentation Only [facility] [address] [place] [address] KevCece welch [address] [place] [phone] Social History Tobacco Use Types Packs/Day [...] Visit [facility] [address] [place] [address] Neda Francisco MD [address] [place] [address] [place] [address] documented as of this encounter Visit Diagnoses Not on filedocumented in this encounter Care Teams Respiratory Therapy Director Relationship Specialty Start Date End Date Amrit Lerma MD [address] [place] [address] PCP - General 12/31/18 documented as of this encounter
--- OUTSIDE RECORDS SUMMARY | 2024-12-23 16:37 | XMS_ITS | Encounter Summary ---
Author Organization [facility], Address [address] [place] [address] Phone Care Team Providers Care Alodize Machine Operator Name Role Phone Amrit Lerma MD Primary Care Provider [phone] Encounter Details Date Type Department Care Team (Late Contact Info) Description 12/04/2023 Documentation Only [facility] [address] [place] [address] [place] [address] [place] [phone] Social History Tobacco Use Types Packs/Day [...] Visit [facility] [address] [place] [address] Neda Francisco MD [address] [place] [address] [place] [address] documented as of this encounter Visit Diagnoses Not on filedocumented in this encounter Care Teams Alodize Machine Operator Relationship Specialty Start Date End Date Amrit Lerma MD [address] [place] [address] PCP - General 12/31/18 documented as of this encounter
--- OUTSIDE RECORDS SUMMARY | 2024-12-23 16:37 | XMS_ITS | Patient Health Record ---
Author Organization [facility] Address [address] [place] [address] Care Team Providers Care Shipping Associate Name Role Phone Maria Guadalupe (RETIRED) Amrit MARQUES Primary Care Provider Unavailable Ray Murillo Unavailable [phone] Reason For Referral No Information Medications Medication SIG (Take, Route, Frequency, Duration) Notes Start Date End Date Status Proferrin ES 12.5 1 tablet Orally Once a day Active Divalproex Sodium ER 500 MG take 1 table t by mouth once daily Oral; Duration: 90 Active Alendronate Sodium 35 MG 1 tablet Orally once a week Active Dicyclomine HCl 10 MG Oral; Duration: 30 Active Venlafaxine HCl ER 37.5 MG Oral; Duration: 30 Active clonazePAM 2 MG (Schedule IV Drug) O ral; Duration: 30 Active Centrum Silver - 1 tablet [...] Problem Status W/U Status Risk Notes Problem Screening for malignant neoplasm of colon (672961205) Encounter for screening for malignant neoplasm of colon (Z12.11) Active confirmed Problem Abnormal feces (707417954) Heme + stool (R19.5) Active confirmed Problem Constipation (19295878) Constipation, unspecified constipation type (K59.00) Active confirmed Plan Of Treatment Pending Test Test Name Order Date GI BIOPSY 11/30/2017 Future Test Test Name Order Date COLONOSCOPY 11/08/2017 Insurance Providers Payer Name Payer Address Payer Phone Subscriber Number Group Number Insured Name Patient Relationship to Insured Coverage Start Date Coverage End Date MEDICARE OF [place] [address] JACQUIE LINDA [id number] [id number] HAN GARCIA Self - patient is the insured MEDICAID OF [facility] [address] [place] [address] [id number] HAN GARCIA Self - patient is the insured Medical (General) History Medical History History ICD Code Denies HI,DM,CVA,Lung disease,renal dise ase Negative colonoscopy in 2006 EGD in 2006--small hiatal hernia--normal duodenal biopsies Constipation Bipolar II with depression Osteoporosis UGI bleed in 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 pylori Surgical History Surgery Date(Month/Year) Precancerous lesion on cervix /removed v ia a LEEP
--- OUTSIDE RECORDS SUMMARY | 2024-12-23 16:37 | XMS_ITS | Encounter Summary ---
Author Organization [facility] Address [address] [place] [address] Phone Care Team Providers Care Tape Keller Operator Name Role Phone Amrit Lerma MD Primary Care Provider [phone] Encounter Details Date Type Department Care Team (Late Contact Info) Description 07/15/2024 Documentation Only [facility] [address] [place] [address] KevCece welch [address] [place] [phone] Social History Tobacco Use Types Packs/Day [...] Visit [facility] [address] [place] [address] Neda Francisco MD [address] [place] [address] [place] [address] documented as of this encounter Visit Diagnoses Not on filedocumented in this encounter Care Teams Tape Keller Operator Relationship Specialty Start Date End Date Amrit Lerma MD [address] [place] [address] PCP - General 12/31/18 documented as of this encounter
--- OUTSIDE RECORDS SUMMARY | 2024-12-23 16:38 | XMS_ITS | Clinical Summary ---
Author Organization [facility] Address [address] [place] [address] Care Team Providers Care Wool Handler Name Role Phone Amrit Lerma MD Primary Care Provider [phone] Allergies No known active allergies Medications venlafaxine XR (EFFEXOR-XR) 37.5 MG 24 hr capsule Take 1 capsule by mouth 1 (one) time each day 7 Active traMADol (ULTRAM) 50 MG tablet Take 1 tablet by mouth 4 (four) times a day Active divalproex (DEPAKOTE) 500 MG 24 hr tablet Take 1 tablet by mouth 1 (one) time each day 7 Active cyclobenzaprine (FLEXERIL) 10 MG tablet Take 1 tablet by mouth 3 (three) times a day 6 Active clonazePAM (KlonoPIN) 2 MG tablet Take 1 tablet by mouth at bed time 7 Active dicyclomine (BENTYL) 10 MG capsule TAKE 1 CAPSULE BY MOUTH TWICE DAILY NEEDED FOR GI DISTURBANCE 1 Active alendronate (FOSAMAX) 70 MG tablet Comments: Filled Date: Aug 13 2014 12:00AM Patient Notes: take 1 tablet by mouth every week Duration: 5 Active Active Problems Problem Noted Date Diagnosed Date Stage 3b chronic kidney disease 10/02/2023 Essential hypertension 09/01/2019 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 Immunizations Immunization Administration Dates Next Due Zoster 10/27/2015 Family History Relation Status Comments Father Mother Social History Tobacco Use Types Packs/Day Years Used Date Smoking Tobacco: Never Assessed Alcohol Use Standard Drinks/Week Comments No 0 (1 standard drink = 0.6 oz pur e alcohol) Comments Unknown Sex and Gender Information Value Date Recorded Sex Assigned at Not on file Legal Sex Female 4:31 PM EST Gender Identity Not on file Sexual Orientation Not on file Last Filed Vital Signs Vital Sign Reading Time Taken Comments Blood Pressure 120/80 11/19/2018 12:01 PM EDT Pulse - - Temperature - - Respiratory Rate - - Oxygen Saturation - - Inhaled Oxygen Concentration - - Weight 56.7 kg (125 lb) 11/19/2018 12:01 PM EDT Height 163.8 cm (5' 4.5 ) 11/19/2018 12:01 PM ED T Body Mass Index 21.12 11/19/2018 12:01 PM EDT Plan of Treatment Upcoming Encounters Date Type Department Care Team (Late st Contact Info) Description 01/29/2025 1:30 PM EST Office Visit [facility] [place], [address] [place] [phone] Neda Francisco MD [address] [place] [phone] Health Maintenance Due Date Last Done Comments Breast Cancer Screening 1950 Pneumococcal Vaccine: 50+ Ye ars (1 of 2 - PCV) 12/30/1971 Colorectal Cancer Screening: Annual FOBT 2001 Colorectal Cancer Screening: Colonoscopy 2001 Colorectal Cancer Screening: Sigmoidoscopy 2001 Influenza Vaccine (#1) 2024 Hepatitis B Vaccine Aged Out No longe r eligible based on patient's age to complete this topic Insurance Medicare Member Subscriber Plan / Payer (Ef fective 2024-Present) Name:Rosaline Linder Member ID:[id number] Relation to Subscriber:Self Name:Rosaline Linder Subscriber ID:[id number] Payer ID:Not on file Group ID:Not on file Type:Not on file Address: [place] [id number] Medicaid [place] [employer] [facility] [place] [address] Care Teams Wool Handler Relationship Specialty Start Date End Date Amrit Lerma MD [address] [place] [address] PCP - General 12/31/18
--- OUTSIDE RECORDS SUMMARY | 2024-12-23 16:38 | XMS_ITS | Encounter Summary ---
Author Organization [facility] Address [address] [place] [address] Phone Care Team Providers Care Manager English Name Role Phone Amrit Lerma MD Primary Care Provider [phone] Encounter Details Date Type Department Care Team (Late Contact Info) Description 05/27/2024 Documentation Only [facility] [address] [place] [address] KevCece welch [address] [place] [phone] Social History Tobacco Use Types Packs/Day [...] Visit [facility] [address] [place] [address] Neda Francisco MD [address] [place] [address] [place] [address] documented as of this encounter Visit Diagnoses Not on filedocumented in this encounter Care Teams Manager English Relationship Specialty Start Date End Date Amrit Lerma MD [address] [place] [address] PCP - General 12/31/18 documented as of this encounter
== END 2024-12-23 13:52 | disposition home or self-care (01) ==
LOC: HO.PMC 13:05
PROVIDERS: Visit Provider Nurse Practitioner Family
DX: M47.812 Spondylosis without myelopathy or radiculopathy, cervical region (principal); M47.816 Spondylosis without myelopathy or radiculopathy, lumbar region; M81.0 Age-related osteoporosis without current pathological fracture; M54.2 Cervicalgia; M54.9 Dorsalgia, unspecified; G89.29 Other chronic pain; M54.16 Radiculopathy, lumbar region; M51.369 Other intervertebral disc degeneration, lumbar region without mention of lumbar back pain or lower extremity pain
CPT/HCPCS: 99204

== ENCOUNTER → 2024-12-23 13:03 | Outpatient (BNVA) | payer MEDICARE, SELFPAY | PROVIDERS: Visit Provider Nurse Practitioner Family | DX: M47.812 Spondylosis without myelopathy or radiculopathy, cervical region (principal); M81.0 Age-related osteoporosis without current pathological fracture; M54.2 Cervicalgia; M54.16 Radiculopathy, lumbar region; G89.29 Other chronic pain; M51.360 Other intervertebral disc degeneration, lumbar region with discogenic back pain only | CPT/HCPCS: 99202 ==